=== PATIENT | male | born 1965 | race Caucasian/White ===

== ENCOUNTER 2023-01-07 09:22 | Outpatient (AMB) | payer MEDICARE, MEDICAID, SELFPAY ==
--- NOTE | 2023-01-07 09:28 | A.OFFVIS_ITS ---
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 Patient reports haivng numbness and tingling on the bottom of his foot for 2 - 3 months with no previous treatment. Allergies No Known Allergies Allergy (Verified 01/07/23 09:32) HPI HPI Comments History of Present Illness Details Diagnosed DM 2 years ago. Numbness started on left foot, bottom, also affects right. No back pain. Notices it when sitting. Does not think affected by walking. Denies claudication symptoms. Denies injury. Disabled from right hand past surgery. No EMG. Saw possibley a foot doctor at [facility]. Told to be normal. Review of Systems Const All systems reviewed & are unremarkable except as noted in HPI and below Physical Exam Constitutional: Patient appears to be in no acute distress, well nourished and well developed. Patient was appropriately conversant and oriented. Good historian. MSK: No specific abnormalities found on inspection of the spine and all extremities. No specific tenderness over any joints on both feet; no tenderness over 5 plantar fascia are or Achilles tendon. No foot drop. Strength is 5/5 in all muscle groups tested. No increased tone noted. Neurological: Neurologic examination of the upper and lower extremities was nonfocal with intact sensation, muscle stretch reflexes and without focal motor deficits . Waller?s negative bilaterally. Babinski was down going bilaterally. Clonus was negative. Gait is non-antalgic without loss of balance. Patient was able to perform heel walk and toe walk. Results Reviewed Results Reviewed: I reviewed records from the following: [facility] Assessment & Plan Assessment & Plan (1) Neuropathy: Code(s): G62.9 - Polyneuropathy, unspecified Plan Suspect patient is developing neuropathy associated with diabetes. Otherwise there is no neurologic deficits on exam. There is no bony signs or symptoms. We will still check x-rays of both feet today to rule out any bone pathology or arthritis. We will also schedule for EMG to confirm/evaluate neuropathy. Assessment and plan discussed with patient, and patient was agreeable. All questions were answered thoroughly. Bhavya Huff MD, KAVON Board Certified, [place] [employer] and [employer] (ABPMR) Board Certified, [place] [employer] Electro[employer] (ABEM) Orders: Orders NE nerve conduction velocity Today G62.9 - Polyneuropathy, unspecified OT Evaluation and Treatment Today G62.9 - Polyneuropathy, unspecified XR foot LT 2V Today G62.9 - Polyneuropathy, unspecified XR foot RT 2V Today G62.9 - Polyneuropathy, unspecified Coding Level of Care Code New Pt Level 4 (42889) Diagnoses Neuropathy G62.9
== END 2023-01-07 11:39 | disposition home or self-care (01) ==
PROVIDERS: Visit Provider Physical Medicine & Rehabilitation
DX: G62.9 Polyneuropathy, unspecified (principal)
CPT/HCPCS: 99204

== ENCOUNTER 2023-01-07 09:22 | Outpatient (REF) | payer MEDICARE, MEDICAID, SELFPAY ==
--- NOTE | ~2023-01-07 | XR_ITS ---
EXAMINATION: XR BILATERAL FEET CLINICAL INFORMATION: Polyneuropathy, pain on bottom of feet. COMPARISON: None available. TECHNIQUE: 3 views each of bilateral feet. FINDINGS: RIGHT FOOT: Small right plantar calcaneal spur. Minimal dorsal calcaneal spurring. Moderate degenerative changes in the 1st metatarsophalangeal joint with spurring and joint space narrowing. No displaced fracture. LEFT FOOT: Minimal dorsal calcaneal spurring. Moderate degenerative changes in the 1st metatarsophalangeal joint with spurring and joint space narrowing. No displaced fracture. XR/XR foot LT 2V IMPRESSION: 1. Small right plantar calcaneal spur. 2. Minimal bilateral dorsal calcaneal spurring. 3. Moderate degenerative changes in the 1st metatarsophalangeal joint. 4. No displaced fracture. Recommend follow up imaging in 10-14 days if fracture is suspected.
--- NOTE | ~2023-01-07 | XR_ITS ---
EXAMINATION: XR BILATERAL FEET CLINICAL INFORMATION: Polyneuropathy, pain on bottom of feet. COMPARISON: None available. TECHNIQUE: 3 views each of bilateral feet. FINDINGS: RIGHT FOOT: Small right plantar calcaneal spur. Minimal dorsal calcaneal spurring. Moderate degenerative changes in the 1st metatarsophalangeal joint with spurring and joint space narrowing. No displaced fracture. LEFT FOOT: Minimal dorsal calcaneal spurring. Moderate degenerative changes in the 1st metatarsophalangeal joint with spurring and joint space narrowing. No displaced fracture. XR/XR foot RT 2V IMPRESSION: 1. Small right plantar calcaneal spur. 2. Minimal bilateral dorsal calcaneal spurring. 3. Moderate degenerative changes in the 1st metatarsophalangeal joint. 4. No displaced fracture. Recommend follow up imaging in 10-14 days if fracture is suspected.
== END 2023-01-07 09:23 | disposition home or self-care (01) ==
LOC: HO.HOSX 09:22
PROVIDERS: Visit Provider Physical Medicine & Rehabilitation
DX: G62.9 Polyneuropathy, unspecified (principal)
CPT/HCPCS: 73620